=== PATIENT | female | born 1950 | race Caucasian/White ===

== ENCOUNTER 2021-10-28 10:59 | Emergency (ER) | payer MEDICARE, BC, OTHER ==
[2021-10-28] VITALS (10 sets, daily range): BP systolic 121–154; BP diastolic 54–119
[~2021-10-28] VITALS: Ht 167.6 cm; Wt 131.8 kg
[2021-10-28] MEDS ORDERED: BIOTIN10 M1 PO (11:23)
[2021-10-28] MEDS ORDERED: NORVASC5 M1 PO (11:23)
[2021-10-28] MEDS ORDERED: ELIQUIS5 MG PO (11:24)
[2021-10-28] MEDS ORDERED: EZETIMIBE10 MG PO (11:24)
[2021-10-28] MEDS ORDERED: BYSTOLIC5 MG PO (11:25)
[2021-10-28] MEDS ORDERED: BENICAR40 MG PO (11:25)
[2021-10-28] MEDS ORDERED: ZYRTEC10 MG PO (11:26)
[2021-10-28] MEDS ORDERED: COLCHICINE0.6 M2 PO (11:26)
[2021-10-28] MEDS ORDERED: VESICARE5 M1 PO (11:26)
[2021-10-28 11:28] LABS: HEMATOCRIT 48.2 % (37.0-47.0); HEMOGLOBIN 14.8 g/dl (12.0-16.0); IMMATURE GRANULOCYTES 0.2 % (0.0-5.0); MEAN CELL VOLUME 87.2 fL CALC (80.0-100.0); MEAN CORPUSCULAR HGB 26.8 pG CALC (26.0-32.0); MEAN CORPUSCULAR HGB CONC 30.7 g/dL CAL (32.0-36.0); NEUT# 5.65 thou/uL (2.00-7.15); RED BLOOD COUNT 5.53 mill/uL (4.20-5.60); RED CELL DISTRI WIDTH 14.3 % (11.5-15.5)
[2021-10-28 11:38] LABS: ALBUMIN 4.1 g/dL (3.2-5.0); ALKALINE PHOSPHATASE 75 u/l (38-126); ANION GAP 14 (6-22 (CALC)); BILIRUBIN, TOTAL 0.5 mg/dL (0.0-1.4); BUN 16 mg/dL (8-23); BUN/CREATININE RATIO 17 (12-20 (CALC)); CARBON DIOXIDE 25 mmol/l (22-30); CHLORIDE 105 mmol/l (95-108); CREATININE 0.9 mg/dL (0.5-1.0); GFR > 60 ML/MIN (>=60 (CALC)); GFR FOR AFR.AMER. > 60 ML/MIN (>=60 (CALC)); LIPASE 40 u/l (23-300); MAGNESIUM 1.5 mg/dL (1.6-2.3); POTASSIUM 3.7 mmol/l (3.5-5.1); SGOT/AST 22 u/l (9-36); SODIUM 140 mmol/l (137-146); TOTAL PROTEIN 7.5 g/dL (6.3-8.2)
[2021-10-28 11:54] LABS: ACT PARTIAL THROMBO TIME 29.4 SECONDS (20.0-32.5); INTERNATIONAL NORMALIZED RATIO 1.1 RATIO (0.7-1.3); PROTHROMBIN TIME 11.2 SECONDS (9.0-12.5)
== END 2021-10-28 13:04 | disposition home or self-care (01) ==
LOC: ED 10:59
DX: I48.91 Unspecified atrial fibrillation (principal); I10 Essential (primary) hypertension; Z86.73 Personal history of transient ischemic attack (TIA), and cerebral infarction without residual deficits; Z79.01 Long term (current) use of anticoagulants